=== PATIENT | female | born 1980 | race Caucasian/White ===

== ENCOUNTER 2021-05-29 20:42 | Emergency (ER) | payer MEDICAID ==
[~2021-05-29] VITALS: Ht 157.5 cm; Wt 71.4 kg
[2021-05-29 20:53] VITALS: BP 139/71
--- NOTE | 2021-05-29 20:58 | PHYS DOC ---
Adult General Chief Complaint Chief Complaint: ANXIETY/PANIC ATTACK HPI HPI Patient is a 40-year-old female patient presented to the ED today complaining of throat burning and upper abdominal burning, symptoms began after she took Zoloft 50 mg at 7 PM today. She states she takes the medicine for anxiety and depression. Patient states she has been taking Zoloft since April 2021. Review of Systems Review of Systems Constitutional: Denies fever or chills [] Eyes: Denies change in visual acuity, redness, or eye pain [] HENT: Denies nasal congestion or sore throat [] Respiratory: Denies cough or shortness of breath [] Cardiovascular: No additional information not addressed in HPI [] GI: Reports throat burning and upper abdominal burning, denies nausea, vomiting, bloody stools or diarrhea [] : Denies dysuria or hematuria [] Musculoskeletal: Denies back pain or joint pain [] Integument: Denies rash or skin lesions [] Neurologic: Denies headache, focal weakness or sensory changes [] All other systems were reviewed and found to be within normal limits, except as documented in this note. Current Medications Current Medications Current Medications Medications (Trade) Dose Ordered Sig/Maryan Start Time Stop Time Status Last Admin Dose Admin Famotidine (Pepcid) 20 mg 1X ONCE 05/29/21 21:00 05/29/21 21:01 UNV Multi-Ingredient Mouthwash/Gargle (Gi Cocktail) 20 ml 1X ONCE 05/29/21 21:00 05/29/21 21:01 UNV Allergies Allergies Allergies Coded Allergies Type Severity Reaction Last Updated Verified No Known Drug Allergies 05/29/21 No Physical Exam Physical Exam Constitutional: Well developed, well nourished, no acute distress, non-toxic appearance. [] HENT: Normocephalic, atraumatic, bilateral external ears normal, oropharynx mois t, no oral exudates, nose normal. [] Eyes: PERRLA, EOMI, conjunctiva normal, no discharge. [] Neck: Normal range of motion, no tenderness, supple, no stridor. [] Cardiovascular:Heart rate regular rhythm, no murmur [] Lungs & Thorax: Bilateral breath sounds clear to auscultation [] Abdomen: Bowel sounds normal, soft, no tenderness, no masses, no pulsatile masses. [] Skin: Warm, dry, no erythema, no rash. [] Back: No tenderness, no CVA tenderness. [] Extremities: No tenderness, no cyanosis, no clubbing, ROM intact, no edema. [] Neurologic: Alert and oriented X 3, normal motor function, normal sensory function, no focal deficits noted. [] Psychologic: Appears nervous EKG EKG [] Radiology/Procedures Radiology/Procedures [] Heart Score C/O Chest Pain: N/A Risk Factors: Risk Factors: DM, Current or recent (<one month) smoker, HTN, HLP, family history of CAD, obesity. Risk Scores: Risk Factors: DM, Current or recent (<one month) smoker, HTN, HLP, family history of CAD, obesity. Course & Med Decision Making Course & Med Decision Making Pertinent Labs and Imaging studies reviewed. (See chart for details) This is a 40-year-old female patient presenting to the ED today complaining of throat burning upper abdominal burning after taking Zoloft. She has been taking Zoloft since April. She was given Pepcid and GI cocktail and discharged. She was reassured. Dragon Disclaimer Dragon Disclaimer This electronic medical record was generated, in whole or in part, using a voice recognition dictation system. Departure Departure: Impression: Primary Impression: Pill esophagitis Additional Impression: Anxiety Disposition: 01 HOME / SELF CARE / HOMELESS Condition: STABLE Patient Instructions: Anxiety and Panic Attacks, [id number], Gastroesophageal Reflux Disease, Adult, Cudw-ln-[id number] Additional Instructions: You were evaluated in the emergency room for pill esophagitis from Zoloft. Please continue taking the medicine as prescribed by your doctor. Ensure you drink a full glass of water when you take the medicine. 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
[2021-05-29] MEDS ORDERED: FAMOTIDINE 20 MG TABLET PO ONE (21:00)
[2021-05-29] MEDS ORDERED: LIDO:MAALOX 1:1 20 ML SINGLE DOSE. PO ONE (21:00)
== END 2021-05-29 21:11 | disposition home or self-care (01) ==
LOC: ER 20:42
DX: F41.9 Anxiety disorder, unspecified (principal); K20.90 Esophagitis, unspecified without bleeding
CPT/HCPCS: 99281-25; 99283-25

== ENCOUNTER 2021-09-01 15:43 | Emergency (ER) | payer MEDICAID ==
[~2021-09-01] VITALS: Ht 157.5 cm; Wt 72.5 kg
[2021-09-01 15:50] VITALS: BP 133/71
--- NOTE | 2021-09-01 15:50 | PHYS DOC ---
Past History Additional Past Medical Histor: ptsd Past Surgical History: No Surgical History Adult General Chief Complaint Chief Complaint: COUGH HPI HPI Patient is a 40 y/o old female who presents with cough. Patient states she has had a cough for approximately 3 months. Describes it to be very persistent and dry. No sputum production. Cough is worse with activity. She does have known history of asthma for which she has been using inhaler but states her inhaler is outdated and not helping. She is a heavy tobacco user. She tried to stop smoking just prior to onset of the symptoms but continues to smoke. No fever. No acute shortness of breath. She does not remember that her symptoms were preceded by viral illness. Has not been evaluated for this complaint. Denies reflux symptoms or history of seasonal allergies. Review of Systems Review of Systems Constitutional: Denies fever or chills Eyes: Denies changes HENT: Denies nasal congestion or sore throat Respiratory: As documented in HPI Cardiovascular: No additional information not addressed in HPI GI: Denies : Denies Musculoskeletal: Denies Integument: Denies rash or skin lesions Neurologic: Denies Endocrine: Denies All other systems were reviewed and found to be within normal limits, except as documented in this note. Allergies Allergies Allergies Coded Allergies Type Severity Reaction Last Updated Verified No Known Drug Allergies 05/29/21 No Physical Exam Physical Exam Constitutional: Well developed, well nourished, no acute distress, non-toxic appearance HENT: Normocephalic, atraumatic, bilateral external ears normal, oropharynx lance st Eyes: PERRLA, EOMI Neck: Normal range of motion Cardiovascular:Heart rate regular rhythm, no murmur Lungs & Thorax: Bilateral breath sounds clear to auscultation, wheezy sounding cough during the interview. Good air movement in all lung wheeler. No increased work of breathing Skin: Warm, dry, no erythema, no rash. Back: Normal ROM Extremities: Normal ROM Neurologic: Alert and oriented X 3 Psychologic: Affect normal EKG EKG [] Radiology/Procedures Radiology/Procedures Initially interpreted by ER physician. No acute findings. Radiology read is congruent. Heart Score C/O Chest Pain: No Risk Factors: Risk Factors: DM, Current or recent (<one month) smoker, HTN, HLP, family history of CAD, obesity. Risk Scores: Risk Factors: DM, Current or recent (<one month) smoker, HTN, HLP, family history of CAD, obesity. Course & Med Decision Making Course & Med Decision Making Pertinent Labs and Imaging studies reviewed. (See chart for details) ED summary: Patient seen in the ER for a chronic cough. She does not have any reflux symptoms but I did encourage her to empirically place herself on antacid medication to see if this improves her symptoms. The same is true for allergies. She continues to smoke tobacco and she was strongly encouraged to stop smoking. X-ray completed and no metastatic disease or consolidations are seen. Normal study. Stable for discharge home. She is given refill of her a lbuterol inhaler and placed on a prednisone burst over the next 5 days to see if this helps with her symptoms. Recommend she follow-up with her primary care doctor. Mirtha Disclaimer Mirtha Disclaimer This electronic medical record was generated, in whole or in part, using a voice recognition dictation system. Departure Departure: Impression: Primary Impression: Asthma Additional Impressions: Bronchitis Tobacco abuse Disposition: HOME / SELF CARE / HOMELESS Admitting Physician: Other Condition: GOOD Referrals: PCP,NO (PCP) Patient Instructions: Asthma, Acute Bronchospasm Scripts Montelukast Sodium (MONTELUKAST SODIUM TABLET ) 10 Mg Tablet 10 MG PO HS for FOR ASTHMA for 30 Days, #30 TAB 0 Refills Prov: RADHA CARRANZA DO 09/01/21 Albuterol Sulfate (PROAIR HFA INHALER) 8.5 Gm Hfa.aer.ad 2 PUFF IH PRN Q4-6HRS PRN for COUGH for 21 Days, #1 INHALER 0 Refills Prov: RADHA CARRANZA DO 09/01/21 Prednisone (PREDNISONE) 50 Mg Tablet 50 MG PO DAILY for 5 Days, #5 TAB Prov: RADHA CARRANZA DO 09/01/21 Problem Qualifiers RADHA CARRANZA DO Sep 01, 2021 15:50
--- NOTE | 2021-09-01 16:06 | RAD ---
XR CHEST 1V History: Reason: chronic, worsening cough, dyspnea / Spl. Instructions: / History: Comparison: None. Findings: No consolidation or pleural effusion. Normal heart size. No pneumothorax. Impression: 1. No acute cardiopulmonary process. Electronically signed by: Andrew Mancera DO (09/01/2021 4:04 PM) [id number]
[2021-09-01] MEDS ORDERED: PRED50TA PO (16:23)
[2021-09-01] MEDS ORDERED: ALBU2.5V8 IH (16:23)
[2021-09-01] MEDS ORDERED: MONT10TA80 PO (16:23)
== END 2021-09-01 16:32 | disposition home or self-care (01) ==
LOC: ER 15:43
DX: J45.909 Unspecified asthma, uncomplicated (principal); Z72.0 Tobacco use
CPT/HCPCS: 71045; 99283

== ENCOUNTER 2021-09-25 08:15 | Emergency (ER) | payer MEDICAID ==
[~2021-09-25] VITALS: Ht 157.5 cm; Wt 72.7 kg
[~2021-09-25 08:15] MED LIST: ALBU2.5V8 IH; MONT10TA80 PO; PRED50TA PO
[2021-09-25] MEDS ORDERED: predniSONE 20 MG TABLET PO ONE (08:45)
--- NOTE | 2021-09-25 08:50 | PHYS DOC ---
Past History Additional Past Medical Histor: ptsd Past Surgical History: , Tubal ligation Alcohol Use: None General Adult EDM: Chief Complaint: COUGH HPI: HPI: Patient is a 40-year-old female coming in for congestion, cough, and sore throat started last night. Patient denies any fevers, vomiting or diarrhea. Has a history of asthma and was treated for bronchitis 1 month ago which has resolved. Has been using her albuterol inhaler with some improvement. Has had her Covid vaccines, but not influenza Review of Systems: Review of Systems: All other systems within normal limits except for as noted in the HPI Current Medications: Current Meds: Current Medications Medications (Trade) Dose Ordered Sig/Maryan Start Time Stop Time Status Last Admin Dose Admin Prednisone (Prednisone) 60 mg 1X ONCE 09/25/21 08:45 09/25/21 08:46 DC Allergies: Allergies: Allergies Coded Allergies Type Severity Reaction Last Updated Verified No Known Drug Allergies 09/01/21 No Physical Exam: PE: Constitutional: Well developed, well nourished, no acute distress, non-toxic appearance. [] HENT: Normocephalic, atraumatic, bilateral external ears normal, nose normal. Erythema in posterior pharynx, no exudates, tonsils not enlarged. Uvula midline [] Eyes: PERRLA, conjunctiva normal, no discharge. [] Neck: No rigidity, supple, no stridor. [] Cardiovascular: Regular rate and rhythm, brisk cap refill [] Lungs & Thorax: Non labored symmetric respirations, no tachypnea or respiratory distress. Diffuse mild wheezing [] Abdomen: Soft, nondistended. Skin: Warm, dry, no erythema, no rash. [] Back: Unremarkable Extremities: No deformities, range of motion grossly intact, no lower extremity edema [] Neurologic: Alert and oriented X 3, no focal deficits noted. [] Psychologic: Affect normal, judgement normal, mood normal. [] Current Patient Data: Vital Signs: Vital Signs Date Time Temp Pulse Resp B/P (MAP) Pulse Ox O2 Delivery O2 Flow Rate FiO2 09/25/21 08:23 98.8 66 18 107/63 (78) 98 Room Air EKG: EKG: [address] [id number] IMAGING REPORT Signed PATIENT: NICOLE KELLEY ACCOUNT: [id number] : 1980 LOCATION: ER AGE: 40 SEX: F EXAM STATUS: REG ER ORD. PHYSICIAN: ALLYSSA BRICE MD REASON: coughing PROCEDURE: CHEST PA & LATERAL EXAMINATION: XR CHEST 2V CLINICAL HISTORY: Cough. EXAM DATE/TIME: 09/25/2021 8:50 AM COMPARISON: 09/01/2021 FINDINGS: Lines, Tubes, and Devices: None. Cardiomediastinal Silhouette: Within normal limits. Lungs and Pleura: No evidence of focal airspace consolidation or pleural effusion. Pulmonary vasculature unremarkable. Bones and Soft Tissues: No acute osseous abnormality. IMPRESSION: No evidence of acute cardiopulmonary abnormality or significant interval change. Electronically signed by: Siddhartha Aleman DO (09/25/2021 8:54 AM) [id number] DICTATED AND SIGNED BY: SIDDHARTHA ALEMAN DO DATE: 09/25/21 0853 CC: ALLYSSA BRICE MD; PCP,NO ~ [] Radiology/Procedures: Radiology/Procedures: [] Heart Score: C/O Chest Pain: No Risk Factors: Risk Factors: DM, Current or recent (<one month) smoker, HTN, HLP, family history of CAD, obesity. Risk Scores: Score 0 - 3: 2.5% MACE over next 6 weeks - Discharge Home Score 4 - 6: 20.3% MACE over next 6 weeks - Admit for Clinical Observation Score 7 - 10: 72.7% MACE over next 6 weeks - Early Invasive Strategies Course & Med Decision Making: Course & Med Decision Making Pertinent Labs and Imaging studies reviewed. (See chart for details) [] Dragon Disclaimer: Dragon Disclaimer: This electronic medical record was generated, in whole or in part, using a voice recognition dictation system. Departure Departure: Impression: Primary Impression: Upper respiratory infection Disposition: HOME / SELF CARE / HOMELESS Condition: STABLE Referrals: PCP,NO (PCP) Patient Instructions: Upper Respiratory Infection, Adult Additional Instructions: Use albuterol inhaler as needed. Recommend [id number] decongestant such as Zyrtec or D or Norma-D Scripts Albuterol Sulfate (PROAIR HFA INHALER) 8.5 Gm Hfa.aer.ad 2 PUFF IH PRN Q4-6HRS PRN for wheezing for 21 Days, #1 INHALER 0 Refills Prov: ALLYSSA BRICE MD 09/25/21 Prednisone (PREDNISONE) 50 Mg Tablet 1 TAB PO DAILY for steroid, #4 TAB You received this medication in the emergency room today. You will starting your next dose tomorrow. Prov: ALLYSSA BRICE MD 09/25/21 ALLYSSA BRICE MD Sep 25, 2021 08:50
--- NOTE | 2021-09-25 08:56 | RAD ---
EXAMINATION: XR CHEST 2V CLINICAL HISTORY: Cough. EXAM DATE/TIME: 09/25/2021 8:50 AM COMPARISON: 09/01/2021 FINDINGS: Lines, Tubes, and Devices: None. Cardiomediastinal Silhouette: Within normal limits. Lungs and Pleura: No evidence of focal airspace consolidation or pleural effusion. Pulmonary vasculat ure unremarkable. Bones and Soft Tissues: No acute osseous abnormality. IMPRESSION: No evidence of acute cardiopulmonary abnormality or significant interval change. Electronically signed by: Siddhartha Delgado DO (09/25/2021 8:54 AM) [id number]
[2021-09-25 09:31] LABS: INFLUENZA A PATIENT NEGATIVE (NEGATIVE); INFLUENZA B PATIENT NEGATIVE (NEGATIVE)
[2021-09-25] MEDS ORDERED: ALBU2.5V8 IH (10:10)
[2021-09-25] MEDS ORDERED: PRED50TA PO (10:10)
[2021-09-25 10:20] VITALS: BP 110/67
== END 2021-09-25 10:28 | disposition home or self-care (01) ==
LOC: ER 08:15
DX: J06.9 Acute upper respiratory infection, unspecified (principal); Z20.822 Contact with and (suspected) exposure to COVID-19
CPT/HCPCS: 71046; 87070; 87428; 87880; 99284; C9803; J7512; U0003

== ENCOUNTER 2021-10-24 19:04 | Emergency (ER) | payer MEDICAID ==
[~2021-10-24] VITALS: Ht 157.5 cm; Wt 74.5 kg
--- NOTE | 2021-10-24 20:02 | RAD ---
Two-view chest dated 10/24/2021 7:58 PM Comparison: 09/25/2021 CLINICAL INDICATION: Cough FINDINGS: PA and lateral views obtained. Heart and mediastinal contours within normal limits. Lungs are clear. No consolidation or pleural effusion. No pneumothorax. IMPRESSION: No acute radiographic abnormality. Electronically signed by: Vance Islas MD (10/24/2021 7:59 PM) TAHIRA
[2021-10-24 20:21] VITALS: BP 119/55
--- NOTE | 2021-10-24 20:30 | PHYS DOC ---
Past History Additional Past Medical Histor: ptsd (GUERA ORELLANA APRN) Past Surgical History: , Tubal ligation (GUERA ORELLANA APRN) Alcohol Use: None (GUERA ORELLANA APRN) General Adult EDM: Chief Complaint: COUGH HPI: HPI: Patient is a 80-year-old female who presents emergency department with complaints of a sore throat, cough, and nasal congestion for the last 3 days. Patient states that started after drinking a new coffee she had about 711. She denied any fever, rash, difficulty breathing, shortness of breath, chest pain, palpitations, abdominal pain, nausea, vomiting, or diarrhea. Patient denies any known COVID or influenza exposure. She does report a history of seasonal allergies. (GUERA ORELLANA APRN) Review of Systems: Review of Systems: Complete ROS is negative unless otherwise noted in the HPI. (GUERA ORELLANA APRN) Allergies: Allergies: Allergies Coded Allergies Type Severity Reaction Last Updated Verified No Known Drug Allergies 09/01/21 No (GUERA ORELLANA APRN) Physical Exam: PE: See above Constitutional: Well developed, well nourished, no acute distress, non-toxic appearance. [] HENT: Normocephalic, atraumatic, bilateral external ears normal, nose congested Eyes: PERRLA, EOMI, conjunctiva normal, no discharge. [] Neck: Normal range of motion, supple, nontender, no stridor. [] Cardiovascular:Heart rate regular rhythm, no murmur, S1-S2 normal Lungs & Thorax: Respirations even and unlabored, no retractions, no respiratory distress, lungs CTA, no wheezing Skin: Warm, dry, no erythema, no rash. [] Extremities: No cyanosis, ROM intact, no edema. [] Neurologic: Alert and oriented X 3, normal motor, normal sensory, no focal deficits noted. [] Psychologic: Affect normal, judgement normal, mood normal. [] (GUERA ORELLANA APRN) Current Patient Data: Labs: Laboratory Tests Test 10/24/21 19:30 Group A Streptococcus Rapid Negative (NEGATIVE) Vital Signs: Vital Signs Date Time Temp Pulse Resp B/P (MAP) Pulse Ox O2 Delivery O2 Flow Rate FiO2 10/24/21 19:15 98.6 88 20 133/49 (77) 98 Room Air (GUERA ORELLANA APRN) EKG: EKG: [] (GUERA ORELLANA APRN) Radiology/Procedures: Radiology/Procedures: PROCEDURE: CHEST PA & LATERAL Two-view chest dated 10/24/2021 7:58 PM Comparison: 09/25/2021 CLINICAL INDICATION: Cough FINDINGS: PA and lateral views obtained. Heart and mediastinal contours within normal limits. Lungs are clear. No consolidation or pleural effusion. No pneumothorax. IMPRESSION: No acute radiographic abnormality. Electronically signed by: Vance Islas MD (10/24/2021 7:59 PM) [facility] [] (GUERA ORELLANA APRN) Heart Score: C/O Chest Pain: No (GUERA ORELLANA APRN) Course & Med Decision Making: Course & Med Decision Making Pertinent Labs and Imaging studies reviewed. (See chart for details) [] (GUERA ORELLANA APRN) Dragon Disclaimer: Dragon Disclaimer: This electronic medical record was generated, in whole or in part, using a voice recognition dictation system. (GUERA ORELLANA APRN) Attending Co-Sign The patient was seen and interviewed as well as examined at the bedside. The chart was reviewed. The case was discussed. Agree with the plan of care. (FATUMA BLANCA DO) Departure Departure: Impression: Primary Impression: Allergic rhinitis Qualified Codes: J30.9 - Allergic rhinitis, unspecified Additional Impression: Cough Disposition: 01 HOME / SELF CARE / HOMELESS Condition: STABLE Referrals: PCP,NO (PCP) Patient Instructions: Allergic Rhinitis, Cough, Adult, [id number] Additional Instructions: Recommend that you take 10 mg of generic Zyrtec (cetirizine) or Claritin at bedtime and use over the counter Flonase (fluticasone) nasal spray 2 sprays each nostril once daily in the morning. You may take Tylenol or ibuprofen as needed for pain/fever. Increase clear fluids. Avoid triggers such as smoke, fragrance, dust, and pollen. You may take OTC cough suppressants as needed. Follow-up with your primary care doctor if symptoms persist, return to the ER if symptoms worsen. GUERA ORELLANA APRN October 24, 2021 20:30 FATUMA BLANCA DO October 25, 2021 18:22
[2021-10-24 20:37] LABS: INFLUENZA A PATIENT NEGATIVE (NEGATIVE); INFLUENZA B PATIENT NEGATIVE (NEGATIVE)
== END 2021-10-24 20:50 | disposition home or self-care (01) ==
LOC: ER 19:04
DX: J30.9 Allergic rhinitis, unspecified (principal); Z20.822 Contact with and (suspected) exposure to COVID-19
CPT/HCPCS: 71046; 87070; 87428; 87880; 99284